=== PATIENT | female | born 2000 | race Caucasian/White ===

== ENCOUNTER 2021-12-02 19:04 | Emergency (ER) | payer BC, SELFPAY ==
--- NOTE | ~2021-12-02 | XR_ITS ---
XR hand RT min 3V DATE: 12/02/2021 19:25 INDICATION: Injury. Generalized pain. TECHNIQUE: 3 views COMPARISON: None FINDINGS: No fracture or dislocation, periosteal reaction or bone destruction, erosive change, chondr ocalcinosis or other significant abnormality. IMPRESSION: Negative Reviewed, dictated and finalized at location A. IMPRESSION: Negative
[2021-12-02 19:12] VITALS: BP 110/62; PULSE 71; RESP 20; TEMP 36.6; O2SAT 100
--- NOTE | 2021-12-02 19:13 | ED.UPPEXIN ---
HPI - Extremity Injury (Upper) General Chief Complaint: Extremity Injury, Upper Stated Complaint: top of right hand injury Time Seen by Provider: 12/02/21 19:13 Source: patient and RN notes reviewed History of Present Illness HPI narrative: Patient is a 21-year-old female who presents to the Urgent Care with complaints of right hand pain. Patient states that at 1:00 p.m. today while working at [employer]. Patient states that the automatic class the drink machine a clipped her hand. Patient states that she took ibuprofen earlier today for the pain. Patient denies any past injuries to the hand. Patient is right-hand dominant. No other acute complaints. No acute distress noted. Patient aware of the plan of care. Some parts of this dictation were generated by voice recognition software and may contain typographical and/or grammatical inaccuracies. Related Data Home Medications Medication Instructions Recorded Confirmed albuterol sulfate 90 mcg/actuation 1 inh inhalation Q4-6H PRN Dyspnea 12/02/21 12/02/21 aerosol inhaler Allergies Allergy/AdvReac Type Severity Reaction Status Date / Time No Known Allergies Allergy Verified 12/02/21 19:17 Review of Systems Review of Systems: CONSTITUTIONAL: Denies fever, chills, or sweats. EYES: Denies visual changes, redness, or discharge. ENT: Denies rhinorrhea, congestion, sore throat, or otalgia. CARDIOVASCULAR: Denies chest pain, palpitations, or edema. RESPIRATORY: Denies cough or dyspnea. GASTROINTESTINAL: Denies abdominal pain, nausea, vomiting, or diarrhea. GENITOURINARY: Denies dysuria or hematuria. SKIN: Denies rash or itching. MUSCULOSKELETAL: Reports of right hand pain NEUROLOGIC: Denies headache, numbness, or weakness. All other systems reviewed are negative, except as documented in HPI. PMFSH Comments At the time of my signature, I reviewed and agree with the nursing past medical, surgical, social, and family history. There is no relevant family history pertinent to the patient complaint. Exam Narrative: GENERAL: This is a well-nourished, well-developed patient, in no apparent distress. HEAD: normocephalic, atraumatic. EYES: PERRL. Sclera clear/white. Vision is grossly intact. EARS: External ears normal NOSE: External nose normal with no obvious nasal discharge, nares without redness, no rhinorrhea. THROAT: Mucous membranes moist NECK: Neck supple SKIN: warm, intact with no suspicious lesions or rash, good texture and turgor. NEURO: awake, alert, and oriented to person, place and time. There were no obvious focal neurologic abnormalities. EXTREMITIES: mild edema, ecchymosis and erythema noted to the dorsal aspect of the right hand proximal the right index finger with mild tenderness. Range of motion of right upper extremity within normal limits. Positive strong right radial pulse with capillary refill less than 2 seconds. Course Course Level of Care: Express Care Visit Vital Signs Vital signs: Vital Signs Temperature 97.8 F 12/02/21 19:12 Pulse Rate 71 12/02/21 19:12 Respiratory Rate 20 12/02/21 19:12 Blood Pressure 110/62 12/02/21 19:12 Pulse Oximetry 100 12/02/21 19:12 Oxygen Delivery Room Air 12/02/21 19:12 Temperature 97.8 F 12/02/21 19:12 Pulse Rate 71 12/02/21 19:12 Respiratory Rate 20 12/02/21 19:12 Blood Pressure 110/62 12/02/21 19:12 Pulse Oximetry 100 12/02/21 19:12 Oxygen Delivery Room Air 12/02/21 19:12 Reviewed MDM - Extremity Injury (Upper) MDM Narrative Medical decision making narrative: reviewed x-ray results with the patient. She is aware that X-ray was negative for any fracture deformity. Advised the patient she was ice/Tylenol/ ibuprofen as needed for pain or discomfort. Avoid any strenuous activity with the use of the hand until pain has subsided. Follow-up with your PCP within 2-5 days or for worsening symptoms or failure to improve. Differential Diagnosis Differential
== END 2021-12-02 19:32 | disposition home or self-care (01) ==
PROVIDERS: Emergency Provider Nurse Practitioner Family; PCP Nurse Practitioner Family
DX: S60.221A Contusion of right hand, initial encounter (principal); T14.90XA Injury, unspecified, initial encounter
CPT/HCPCS: 73130; 99203; G0463

== ENCOUNTER 2022-02-09 17:53 | Emergency (ER) | payer BC, SELFPAY ==
--- NOTE | 2022-02-09 17:55 | ED.EAR ---
HPI - Ear Problem General Chief complaint: Dental/Oral Stated complaint: right side jaw line pain Time Seen by Provider: 02/09/22 17:55 Source: patient and RN notes reviewed History of Present Illness HPI Narrative: Patient is a 22-year-old female who presents to urgent care with complaints of right ear and jaw pain. Patient states that she started having pain approximately 3 days ago however she knows it is due to her wisdom teeth which she is not ready to get pulled. Patient states she does have an oral surgeon but has not seen them in some time. Patient has been taking ibuprofen for the pain. Denies any facial swelling, fever, nausea or vomiting. No other acute complaints. No acute distress noted. Patient aware of the plan of care. Some parts of this dictation were generated by voice recognition software and may contain typographical and/or grammatical inaccuracies. Related Data Home Medications Medication Instructions Recorded Confirmed albuterol sulfate 90 mcg/actuation 1 inh inhalation Q4-6H PRN Dyspnea 12/02/21 12/02/21 aerosol inhaler Allergies Allergy/AdvReac Type Severity Reaction Status Date / Time No Known Allergies Allergy Verified 02/09/22 18:03 Review of Systems Review of Systems: CONSTITUTIONAL: Denies fever, chills, or sweats. EYES: Denies visual changes, redness, or discharge. ENT: Denies rhinorrhea, congestion, sore throat . Reports right otalgia and jaw pain CARDIOVASCULAR: Denies chest pain, palpitations, or edema. RESPIRATORY: Denies cough or dyspnea. GASTROINTESTINAL: Denies abdominal pain, nausea, vomiting, or diarrhea. GENITOURINARY: Denies dysuria or hematuria. SKIN: Denies rash or itching. MUSCULOSKELETAL: Denies back pain, joint pain, or myalgia. NEUROLOGIC: Denies headache, numbness, or weakness. All other systems reviewed are negative, except as documented in HPI. PMFSH Comments At the time of my signature, I reviewed and agree with the nursing past medical, surgical, social, and family history. There is no relevant family history pertinent to the patient complaint. Exam Narrative: GENERAL: This is a well-nourished, well-developed patient, in no apparent distress. HEAD: normocephalic, atraumatic. EYES: PERRL. Sclera clear/white. Vision is grossly intact. EARS: External ears normal, auditory canals clear and without drainage, TMs normal without perforation. Hearing grossly intact. NOSE: External nose normal with no obvious nasal discharge, nares without redness, no rhinorrhea. THROAT: Mucous membranes moist, posterior pharynx clear. DENTAL: impacted wisdom tooth to the right lower, tooth number 32 without surrounding edema, erythema or notable abscess NECK: Neck supple SKIN: warm, intact with no suspicious lesions or rash, good texture and turgor. NEURO: awake, alert, and oriented to person, place and time. There were no obvious focal neurologic abnormalities. EXTREMITIES: No clubbing, cyanosis, or edema. Course Course Level of Care: Express Care Visit Vital Signs Vital signs: Vital Signs Temperature 99.2 F 02/09/22 17:58 Pulse Rate 99 02/09/22 17:58 Respiratory Rate 18 02/09/22 17:58 Blood Pressure 121/67 02/09/22 17:58 Pulse Oximetry 100 02/09/22 17:58 Oxygen Delivery Room Air 02/09/22 17:58 Temperature 99.2 F 02/09/22 17:58 Pulse Rate 99 02/09/22 17:58 Respiratory Rate 18 02/09/22 17:58 Blood Pressure 121/67 02/09/22 17:58 Pulse Oximetry 100 02/09/22 17:58 Oxygen Delivery Room Air 02/09/22 17:58 reviewed Medical Decision Making MDM Narrative Medical decision making narrative: advised patient to use warm compress or ice to the jaw to help with discomfort. Continue Tylenol/ ibuprofen. Ear pain is stemming from the impacted wisdom tooth however no notable infection. Antibiotics are not necessary. The radiation of pain is due to nerve compression from the impacted tooth. Follow-up with your dentist/ oral surg
[2022-02-09 17:58] VITALS: BP 121/67; PULSE 99; RESP 18; TEMP 37.3; O2SAT 100
== END 2022-02-09 18:25 | disposition home or self-care (01) ==
PROVIDERS: Emergency Provider Nurse Practitioner Family; PCP Nurse Practitioner Family
DX: K08.89 Other specified disorders of teeth and supporting structures (principal); J45.909 Unspecified asthma, uncomplicated
CPT/HCPCS: 99211; G0463